=== PATIENT | female | born 1960 | race Caucasian/White ===

== ENCOUNTER 2022-03-30 18:03 | Inpatient (IN) | payer OTHER, MEDICAID ==
[~2022-03-30] VITALS: Ht 149.9 cm; Wt 79.9 kg
[2022-03-30] MEDS ORDERED: SODIUM CHLORIDE 0.9% 500 ML IVB ONE (20:30)
[2022-03-30] MEDS ORDERED: ONDANSETRON HCL 4 MG/2 ML VIAL IV ONE (20:30)
[2022-03-30] MEDS ORDERED: MORPHINE SULFATE 4 MG/ML SYR/VIAL IV ONE (20:30)
[2022-03-30] MEDS ORDERED: HYDROcodone-ACET 5/325MG TAB PO PRN (22:45)
[2022-03-30] MEDS ORDERED: TEMAZEPAM 15 MG CAP PO PRN (22:45)
[2022-03-30] MEDS ORDERED: MORPHINE SULFATE INJ 2 MG/ml SYRG IV PRN (22:45)
[2022-03-30] MEDS ORDERED: ACETAMINOPHEN 325 MG TAB PO PRN (22:45)
[2022-03-30] MEDS ORDERED: ONDANSETRON HCL 4 MG/2 ML VIAL IV PRN (22:45)
[2022-03-31 00:23] LABS: Basophils # (auto) 0.1 10 ^3/uL (0-0.2); Basophils % (auto) 0.8 % (0.0-2.0); Eosinophils # (auto) 0.2 10 ^3/uL (0-0.8); Eosinophils % (auto) 2.2 % (0.0-7.0); Hematocrit 39.8 % (36.0-46.0); Hemoglobin 13.2 g/dL (12.2-16.2); Lymphocytes # (auto) 1.8 10 ^3/uL (0.4-5.4); Lymphocytes % (auto) 19.4 % (10.0-50.0); Mean Corpuscular Hemoglobin 27.3 pg (28.0-32.0); Mean Corpuscular Hgb Conc. 33.2 g/dL (32.0-36.0); Mean Corpuscular Volume 82.2 fL (80.0-100.0); Monocytes # (auto) 0.6 10 ^3/uL (0-1.3); Monocytes % (auto) 6.5 % (0.0-12.0); Neutrophils # (auto) 6.7 10 ^3/uL (1.6-8.6); Neutrophils % (auto) 71.1 % (37.0-80.0); Nucleated Red Blood Cells % 0.1 %; Red Blood Cells 4.84 10^6/uL (4.0-5.20); Red Cell Distribution Width 14.8 % (11.8-14.3); White Blood Cell 9.5 10^3/uL (4.4-10.8)
[2022-03-31 00:36] LABS: INR 0.91 (0.9-1.15); Partial Thromboplastin Time 24.4 sec (24.6-33.4)
[2022-03-31 00:45] LABS: Potassium 3.5 mmol/L (3.5-5.1)
[2022-03-31 00:50] LABS: Albumin 3.7 g/dL (3.4-5.0); BUN/Creatinine Ratio 27.4; Calcium 9.2 mg/dL (8.5-10.1)
[2022-03-31 00:52] LABS: Bilirubin, Total 0.5 mg/dL (0.2-1.0); Total Protein 6.8 g/dL (6.4-8.2)
[2022-03-31 04:22] LABS: Urine Bacteria FEW /hpf (None Seen); Urine Blood Negative /uL (Negative); Urine Mucus FEW (None Seen); Urine Specific Gravity 1.029 (1.001-1.035); Urine WBC 4 /hpf (0 - 5)
[2022-03-31] MEDS: SODIUM CHLORIDE 0.9% 1,000 ML IV SCH ×2 (09:15→12:58)
[2022-03-31 12:02] VITALS: BP 125/71
[2022-03-31] MEDS ORDERED: KETOROLAC TROMETH 30 MG/ML 1ML VIAL IV PRN (13:30)
[2022-03-31] MEDS ORDERED: fentaNYL CITRATE 100 MCG/2 ML VL ONE (13:39)
[2022-03-31] MEDS ORDERED: MEPERIDINE HCL (50 MG/ML) 1 ML VIAL ONE (13:39)
[2022-03-31] MEDS ORDERED: MIDAZOLAM HCL 2MG/2ML 2ml VIAL (1mg/ml) ONE (13:39)
[2022-03-31] MEDS ORDERED: ceFAZolin 1GM/50ML 100 ML IV ONE (14:09)
[2022-03-31] MEDS ORDERED: ceFAZolin 1GM/50ML 50 ML IV ONE (14:14)
[2022-03-31] MEDS ORDERED: LIDOCAINE 1% (LOCAL ANESTH.) PF 5ml SDV ONE (14:30)
[2022-03-31] MEDS ORDERED: LIDOCAINE 1%HCL (LOCAL ANESTH) 10 ML MDV ONE (14:30)
[2022-03-31] MEDS ORDERED: EPINEPHrine HCL 1 MG/1 ML AMP ONE (14:30)
[2022-03-31] MEDS ORDERED: DexAMETHasone SOD PHOS 10MG/1ML VIAL INJ ONE (14:50)
[2022-03-31] MEDS ORDERED: diphenhdrAMINE HCL 50 MG/1 ML VL ONE (14:50)
[2022-03-31] MEDS ORDERED: HYDROmorphone HCL 2 MG/ML VL/or syr IV PRN ×3 (15:15)
[2022-03-31] MEDS ORDERED: ONDANSETRON HCL 4 MG/2 ML VIAL IV PRN (15:15)
[2022-03-31 17:00] VITALS: BP 102/59
[2022-03-31] MEDS: MORPHINE SULFATE INJ 2 MG/ml SYRG IV PRN (21:09)
[2022-03-31 22:00] VITALS: BP 108/61
[2022-04-01] MEDS: MORPHINE SULFATE INJ 2 MG/ml SYRG IV PRN ×2 (01:30→05:54)
[2022-04-01 04:17] VITALS: BP 108/71
[2022-04-01] MEDS: SODIUM CHLORIDE 0.9% 1,000 ML IV SCH (04:45)
[2022-04-01 08:00] VITALS: BP 128/67
[2022-04-01 08:30] VITALS: BP 128/67
[2022-04-02] MEDS ORDERED: CEPH-510 PO (03:45)
== END 2022-04-01 10:23 | disposition left against medical advice (07) | DRG 93 ==
LOC: ER 18:03 → OVERFLOW 22:47 → EAST 03-31 11:41
PROVIDERS: ADMIT Nurse Practitioner; ATTEND Nurse Practitioner Acute Care
PROC: 0JPT0MZ Removal of Stimulator Generator from Trunk Subcutaneous Tissue and Fascia, Open Approach (ICD-10-PCS; principal; 2022-03-31 14:11)
DX: T85.113A Breakdown (mechanical) of implanted electronic neurostimulator, generator, initial encounter (principal); M19.90 Unspecified osteoarthritis, unspecified site; E66.9 Obesity, unspecified; M54.9 Dorsalgia, unspecified; Y83.8 Other surgical procedures as the cause of abnormal reaction of the patient, or of later complication, without mention of misadventure at the time of the procedure; Z53.29 Procedure and treatment not carried out because of patient's decision for other reasons; J45.909 Unspecified asthma, uncomplicated; Z20.822 Contact with and (suspected) exposure to COVID-19; E78.5 Hyperlipidemia, unspecified; Z88.2 Allergy status to sulfonamides; Z90.710 Acquired absence of both cervix and uterus; Z93.6 Other artificial openings of urinary tract status; Z90.49 Acquired absence of other specified parts of digestive tract; Y92.89 Other specified places as the place of occurrence of the external cause
CPT/HCPCS: 36415; 74176; 76000; 80053; 81001; 85025; 85610; 85730; 86850; 86900; 86901; 87070; 87075; 87426; 96361; 96374; G0378; J0171; J0690; J1100; J1885; J2001; J2250; J2405

== ENCOUNTER 2022-04-01 17:36 | Emergency (ER) | payer OTHER, MEDICAID ==
[~2022-04-01] VITALS: Ht 149.9 cm; Wt 75.0 kg
[2022-04-01 19:16] LABS: Basophils # (auto) 0 10 ^3/uL (0-0.2); Eosinophils # (auto) 0 10 ^3/uL (0-0.8); Hemoglobin 11.7 g/dL (12.2-16.2); Lymphocytes # (auto) 0.3 10 ^3/uL (0.4-5.4); Neutrophils # (auto) 4.3 10 ^3/uL (1.6-8.6); Nucleated Red Blood Cells % 0.1 %; White Blood Cell 4.9 10^3/uL (4.4-10.8)
[2022-04-01 19:18] LABS: Basophils % (auto) 0.7 % (0.0-2.0); Eosinophils % (auto) 0.2 % (0.0-7.0); Hematocrit 35.6 % (36.0-46.0); Lymphocytes % (auto) 7.1 % (10.0-50.0); Mean Corpuscular Hemoglobin 26.8 pg (28.0-32.0); Mean Corpuscular Hgb Conc. 32.9 g/dL (32.0-36.0); Mean Corpuscular Volume 81.5 fL (80.0-100.0); Monocytes # (auto) 0.1 10 ^3/uL (0-1.3); Monocytes % (auto) 2.7 % (0.0-12.0); Neutrophils % (auto) 89.3 % (37.0-80.0); Red Blood Cells 4.37 10^6/uL (4.0-5.20); Red Cell Distribution Width 14.5 % (11.8-14.3)
[2022-04-01 19:29] LABS: Calcium 8.6 mg/dL (8.5-10.1); Potassium 3.4 mmol/L (3.5-5.1)
[2022-04-01 19:37] LABS: BUN/Creatinine Ratio 14.7; Bilirubin, Total 0.6 mg/dL (0.2-1.0); CRP High Sensitivity 13.8 mg/dL (< 0.3); Total Protein 6.2 g/dL (6.4-8.2)
[2022-04-01] MEDS ORDERED: VANCOMYCIN 1GM/250ML 250 ML IV ONE (22:00)
[2022-04-01] MEDS ORDERED: PIPERACILLIN-TAZOB 3.375GM 100 ML IV ONE (22:00)
[2022-04-02] MEDS ORDERED: CEPH-510 PO (03:45)
[2022-04-02] MEDS ORDERED: HYDROcodone-ACET 5/325MG TAB PO ONE (04:00)
[2022-04-02 04:57] VITALS: BP 132/72
== END 2022-04-02 05:00 | disposition home or self-care (01) ==
LOC: ER 17:40
DX: M54.50 Low back pain, unspecified (principal); R33.9 Retention of urine, unspecified; G89.28 Other chronic postprocedural pain; J45.909 Unspecified asthma, uncomplicated; E78.5 Hyperlipidemia, unspecified; F12.10 Cannabis abuse, uncomplicated; Z88.2 Allergy status to sulfonamides; Z90.49 Acquired absence of other specified parts of digestive tract; Z90.710 Acquired absence of both cervix and uterus
CPT/HCPCS: 36415; 72131; 80053; 83605; 85025; 86141

== ENCOUNTER 2022-06-20 12:47 | Emergency (ER) | payer OTHER, MEDICAID ==
[~2022-06-20 12:47] MED LIST: CEPH-510 PO
== END 2022-06-20 13:38 | disposition left against medical advice (07) ==
LOC: ER 12:47
DX: R06.02 Shortness of breath (principal); Z53.21 Procedure and treatment not carried out due to patient leaving prior to being seen by health care provider

== ENCOUNTER 2022-08-10 15:32 | Emergency (ER) | payer OTHER, MEDICAID ==
[~2022-08-10] VITALS: Ht 149.9 cm; Wt 69.9 kg
[2022-08-10 22:06] LABS: Urine Bacteria FEW /hpf (None Seen); Urine Blood Negative /uL (Negative); Urine Mucus FEW (None Seen); Urine Specific Gravity 1.023 (1.001-1.035); Urine WBC 10 /hpf (0 - 5)
[2022-08-10] MEDS ORDERED: NITR-87 PO (22:18)
[2022-08-10 22:51] VITALS: BP 134/85
[2022-08-11] MEDS ORDERED: MIDO5TAB22 PO (18:37)
[2022-08-11] MEDS ORDERED: ESCI-34 PO (18:37)
[2022-08-11] MEDS ORDERED: TRAZ100T3 PO (18:37)
[2022-08-11] MEDS ORDERED: MONT-8 PO (18:37)
[2022-08-11] MEDS ORDERED: FERR-20 PO (18:37)
[2022-08-11] MEDS ORDERED: PANT1INJ3 PO (18:37)
[2022-08-11] MEDS ORDERED: ATOR40TA52 PO (18:37)
[2022-08-11] MEDS ORDERED: APIX5TAB PO (18:37)
[2022-08-11] MEDS ORDERED: OXYC-963 PO (18:37)
[2022-08-11] MEDS ORDERED: VALB80CA PO (18:37)
[2022-08-11] MEDS ORDERED: PRAM2.25 PO (18:37)
[2022-08-11] MEDS ORDERED: HYDR25TA4 PO (18:37)
[2022-08-11] MEDS ORDERED: GABA300C10 PO (18:37)
== END 2022-08-10 22:52 | disposition home or self-care (01) ==
LOC: ER 15:32
DX: N39.0 Urinary tract infection, site not specified (principal); F12.10 Cannabis abuse, uncomplicated; J45.909 Unspecified asthma, uncomplicated; E78.5 Hyperlipidemia, unspecified; R51.9 Headache, unspecified; Z88.2 Allergy status to sulfonamides
CPT/HCPCS: 51702; 81001; 99284; J7030

== ENCOUNTER 2022-09-07 12:30 | Emergency (ER) | payer OTHER, MEDICAID ==
[~2022-09-07] VITALS: Ht 149.9 cm; Wt 74.0 kg
[~2022-09-07 12:30] MED LIST changes: +APIX5TAB PO; +ATOR40TA52 PO; +ESCI-34 PO; +FERR-20 PO; +GABA300C10 PO; +HYDR25TA4 PO; +MIDO5TAB22 PO; +MONT-8 PO; +NITR-87 PO; +PANT1INJ3 PO; +PRAM2.25 PO; +TRAZ100T3 PO; +VALB80CA PO
[2022-09-07 13:30] VITALS: BP 156/88
[2022-09-07] MEDS ORDERED: HYDROcodone-ACET 5/325MG TAB PO ONE (14:00)
[2022-09-07] MEDS ORDERED: ALBUTEROL SULF 2.5 MG/0.5ML(0.5%) NEB SOLN NEB ONE (14:00)
[2022-09-07] MEDS ORDERED: IPRATROPIUM BROM 0.5 MG/2.5ML INH SOL NEB ONE (14:00)
[2022-09-07] MEDS ORDERED: PRED20TA2 PO (14:36)
== END 2022-09-07 14:39 | disposition home or self-care (01) ==
LOC: ER 12:30
DX: J45.901 Unspecified asthma with (acute) exacerbation (principal); E78.5 Hyperlipidemia, unspecified; M25.561 Pain in right knee; F12.10 Cannabis abuse, uncomplicated; G89.4 Chronic pain syndrome; Z88.2 Allergy status to sulfonamides
CPT/HCPCS: 94640; 99283; J7644

== ENCOUNTER 2022-09-16 06:33 | Emergency (ER) | payer OTHER, MEDICAID ==
[~2022-09-16] VITALS: Ht 149.9 cm; Wt 75.0 kg
[~2022-09-16 06:33] MED LIST changes: +PRED20TA2 PO
[2022-09-16 07:51] VITALS: BP 116/71
[2022-09-16 08:18] LABS: Urine Bacteria FEW /hpf (None Seen); Urine Blood Negative /uL (Negative); Urine Mucus FEW (None Seen); Urine Specific Gravity 1.028 (1.001-1.035); Urine WBC 7 /hpf (0 - 5)
[2022-09-16] MEDS ORDERED: HYDROcodone-ACET 5/325MG TAB PO ONE (09:00)
[2022-09-16] MEDS ORDERED: KETOROLAC TROMETH 60MG/2ML VIAL IM ONE (09:00)
== END 2022-09-16 09:40 | disposition home or self-care (01) ==
LOC: ER 06:33
DX: M51.37 Other intervertebral disc degeneration, lumbosacral region (principal); J45.909 Unspecified asthma, uncomplicated; E78.5 Hyperlipidemia, unspecified; Z88.2 Allergy status to sulfonamides
CPT/HCPCS: 72100; 81001; 96372; 99284; J1885